=== PATIENT | female | born 1960 | race Caucasian/White ===

== ENCOUNTER → 2021-12-25 09:57 | Outpatient (CLI) | payer OTHER, SELFPAY ==
[2021-12-25 11:29] LABS: COVID19 -Nasal RAPID Negative (Negative)
== END ==
PROVIDERS: PCP Internal Medicine; Referring Provider Internal Medicine; Visit Provider Internal Medicine
DX: Z20.822 Contact with and (suspected) exposure to COVID-19 (principal)
CPT/HCPCS: 87635; C9803

== ENCOUNTER → 2021-12-25 09:58 | Outpatient (CLI) | payer OTHER, SELFPAY ==
--- NOTE | 2021-12-31 09:19 | PM.PFT.1 ---
Pulmonary Function Test Referral & Results Date Patient Seen: 12/25/21 Requesting provider: Tristian Frederick Results: The spirometry demonstrates an FVC of 4.04 L which is 97% of predicted. The FEV1 was measured at 3.19 L which is 99% of predicted. The FEV1/FVC ratio was 79 which is 101% of predicted. Following the administration of bronchodilator there was no appreciable change. Lung volumes show an SVC of 3.85 L which is 103% of predicted. The diffusing capacity was measured at 33.58 which is 99% of predicted. The maximum voluntary ventilation was normal Interpretation: This study demonstrates normal pulmonary function
== END ==
PROVIDERS: PCP Internal Medicine; Referring Provider Internal Medicine; Visit Provider Internal Medicine
DX: J45.20 Mild intermittent asthma, uncomplicated (principal); J30.89 Other allergic rhinitis; Z20.822 Contact with and (suspected) exposure to COVID-19
CPT/HCPCS: 87635; 94060; 94726; 94729; C9803

== ENCOUNTER → 2022-05-01 14:37 | Outpatient (CLI) | payer OTHER, SELFPAY ==
[2022-05-01 15:50] LABS: Hematocrit 39.2 % (36-46); Hemoglobin 13.5 g/dL (12.0-16.0); Mean Corpuscular HGB Conc 34.4 % (30-36); Mean Corpuscular Hemoglobin 32.6 PG (26-34); Platelet Count 246 X10^3/uL (150-400); Red Blood Cell Count 4.12 X10^6/uL (4.0-5.2); White Blood Cell Count 5.8 X10^3/uL (4.5-11.0)
[2022-05-01 16:16] LABS: Alanine Aminotransferase 50 IU/L (<35); Albumin 4.2 g/dL (3.5-5.0); Albumin Globulin Ratio 1.8 (1.0-2.8); Alkaline Phosphatase 57 U/L (38-126); Aspartate Aminotransferase 45 IU/L (14-36); BUN Creatinine Ratio 14.3 (6-22); Bilirubin Total 0.4 mg/dL (0.2-1.3); Blood Urea Nitrogen 13 mg/dL (7-17); Carbon Dioxide 27 mmol/L (22-32); Chloride 103 mmol/L (98-107); Estimated Glomerular Filt Rate > 60 mL/min (>60); Globulin 2.4 g/dL (1.7-4.1); Glucose 81 mg/dL (80-110); HEMOLYSIS < 15 (0-50); Potassium 3.7 mmol/L (3.4-5.1); Sodium 139 mmol/L (137-145); Total Protein 6.6 g/dL (6.3-8.2)
[2022-05-01 16:48] LABS: TSH w/ Reflex to FT4 1.39 uIU/mL (0.47-4.68)
== END ==
PROVIDERS: PCP Internal Medicine; Referring Provider Internal Medicine; Visit Provider Internal Medicine
DX: E78.2 Mixed hyperlipidemia; I25.10 Atherosclerotic heart disease of native coronary artery without angina pectoris; Z78.0 Asymptomatic menopausal state; Z13.820 Encounter for screening for osteoporosis; M81.0 Age-related osteoporosis without current pathological fracture
CPT/HCPCS: 36415; 77080; 80053; 84443; 85027

== ENCOUNTER → 2022-05-19 10:38 | Outpatient (CLI) | payer BC, SELFPAY ==
[2022-05-19 11:26] LABS: Alanine Aminotransferase 40 IU/L (<35); Alkaline Phosphatase 52 U/L (38-126); Aspartate Aminotransferase 34 IU/L (14-36); Bilirubin Total 0.7 mg/dL (0.2-1.3); Bilirubin Unconjugated 0.6 mg/dL (0.0-1.1); HEMOLYSIS < 15 (0-50); Total Protein 6.9 g/dL (6.3-8.2)
[2022-05-22 16:27] LABS: Albumin 4.5 g/dL (3.5-5.0); Albumin Globulin Ratio 1.9 (1.0-2.8); Globulin 2.4 g/dL (1.7-4.1)
== END ==
PROVIDERS: PCP Internal Medicine; Referring Provider Internal Medicine; Visit Provider Internal Medicine
DX: R79.89 Other specified abnormal findings of blood chemistry (principal)
CPT/HCPCS: 36415; 80076

== ENCOUNTER → 2022-12-30 14:03 | Outpatient (CLI) | payer BC, OTHER, SELFPAY ==
[2022-12-30 16:22] LABS: Vitamin D 25 Hydroxy (D3) 66.8 ng/mL (30.0-100.0)
== END ==
PROVIDERS: PCP Internal Medicine; Referring Provider Internal Medicine; Visit Provider Internal Medicine
DX: E21.3 Hyperparathyroidism, unspecified (principal); M81.0 Age-related osteoporosis without current pathological fracture
CPT/HCPCS: 36415; 82306; 82310; 83970

== ENCOUNTER 2024-08-18 11:13 | Outpatient (RCR) | payer BC, SELFPAY ==
--- NOTE | 2024-08-18 15:21 | ST.OPIE ---
Visit Care Team Role Provider Type Tristian Frederick MD Family Provider Physician Primary Care Provider Specialty: Internal Medicine Address: [address] [place] [address], [id number] Email: [email or web address] Tyrone Ramírez DO Attending Provider Non-Staff Referring Provider Specialty: Family Practice Address: [address] [place] [address], [id number] Email: Speech-Language Pathology Initial Evaluation SERVICE DELIVERY CONSULTANT Clinical Swallow Evaluation Start: 08/18/24 13:42 Freq: Status: Active Protocol: Document 08/18/24 13:43 SS (Rec: 08/18/24 14:29 SS Desktop) Clinical Swallow Evaluation Session Time Visit Start Time 11:30 Visit Stop Time 12:05 Total Visit Minutes 35 Visit Information Visit Number Initial evaluation Plan of Care Dates 08/18/24-11/17/24 Insurance Information BCBS Out of [facility] (max 20 visits) Referral Referring Provider Dr. Tyrone Ramírez Reason for Referral Swallowing concerns Setting Assessment Location Outpatient Care Visit Type Note Type Initial evaluation Next Note Type Next Note Type Treatment Note Patient Information Identification Type Name History Moni Ozuna is a 64-year -old female, referred for a clinical swallow evaluation by Dr. Ramírez due to concerns regarding globus sensation and hx of esophageal dysphagia. 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 Her GERD was previously treated with protonics, though she stopped taking them recently after not noticing an improvement in symptoms. She has implemented all strategies recommended to control the GERD symptoms. She reports her gastritis is now fully resolved and managed. PMHx includes allergic rhinitis, asthma, hyperlipidemia, coronary artery disease, and atrial fibrillation. Since experiencing the phrenic nerve damage, pt reports experiencing shortness of breath when speaking for prolonged periods of time, reduced volume, and vocal hoarseness. She has recently undergone a pulmonary function test, though SERVICE DELIVERY CONSULTANT does not have access to the records. Additionally, pt reports symptoms that may be related to GERD diagnosis, though possibly are indicative of a swallowing impairment. She reports globus sensation, particularly when lying down at night. She also reports occasional coughing with liquids, particularly when taking consecutive sips or not paying attention. She denied overt s/sx of aspiration with solids or medications and denied sticking sensation during or after swallowing. She denied additional esophageal symptoms. She denied neurological history or recent head/neck injuries or surgeries. She denied hx of pneumonia. Pt is also concerned that her symptoms may be related to the medications that she is currently taking and the effects of polypharmacy. Subjective Observations Pt arrived to the evaluation on time and was engaged and motivated throughout. Reported by Patient/Caregiver Other Symptoms Coughing,Difficulty swallowing liquids Current Diet Regular (IDDSI 7) Baseline Feeding Method Independent in self-feeding Results Pt reported occasional coughing with thin liquids. She expressed that pills stick in her throat if she does not use a puree carrier. She also reported globus sensation unrelated to PO intake. Current diet is regular textures, thin liquids, and pills in puree carrier. P The IDDSI Framework Protocol: IDDSI.1 Objective Assessment Mental Status Alert,Responsive,Cooperative Oral Integrity WFL Dentition Within normal limits Lip Function Within normal limits Observation of Lips at Rest Symmetrical Pucker Within normal limits Lip Retraction Within normal limits Alternating Pucker/Lip Retraction Within normal limits Tongue Function Within normal limits Observations of Tongue at Rest Within normal limits Tongue Protrusion Within normal limits Tongue Retraction Within normal limits Tongue Lateralization Within normal limits Jaw Function Within normal limits Observation of Jaw at Rest Within normal limits Jaw Opening Within normal limits Jaw Closing Within normal limits Jaw Lateralization Within normal limits Jaw Protrusion Within normal limits Jaw Retraction Within normal limits Hard/Soft Palate Function Within normal limits Observations of Hard/Soft Palate Within normal limits Nasality Within normal limits Respiratory Sufficiency Within normal limits,Mild impairment Comment Phrenic nerve damage may be impacting diaphragmatic function, though this did not appear to impact swallowing during evaluation. Pt does report reduced expiratory efficiency/strength. Food and Liquid Trials Position During Assessment Upright (90 degrees) Liquids Trialed Thin (IDDSI 0) Solid Trials Regular (IDDSI 7) Administration Type Cup single sip,Cup consecutive sips,Straw,Self-feeding Oral Impairment Within normal limits Oral Phase Comments WNL function. Oral acceptance of bolus was WNL. Pt demonstrated adequate labial seal. Anterior-posterior transit of the bolus appeared timely. Mastication appeared timely. No oral residue was observed. Pharyngeal Impairment Mildly impaired Pharyngeal Phase Comments Pt demonstrated immediate cough during sequential sips of thin liquid, though this was inconsistent. She expressed she felt she was rushing. No overt s/sx of aspiration noted with regular texture. GERD may also be contributing to presence of cough and globus sensation, though penetration/aspiration cannot be ruled out without instrumental assessment. Fatigue/Endurance Endurance WNL The IDDSI Framework Protocol: IDDSI.1 Findings Swallowing Function Pharyngeal phase dysphagia Severity of Swallow Impairment Mildly impaired Prognosis Good Based on Cognitive status,Age,Duration of symptoms/severity,Other ( comment) Comment Signs and symptoms of pharyngeal dysphagia, likely related to the pt's dx of GERD and gastritis, though aspiration impacting swallowing safety and pharyngeal residue impacting swallowing efficiency cannot be ruled out without instrumental assessment. Based on pt?s good oral health status and overall immune function, pt currently remains at a low risk of pulmonary compromise and aspiration risk appears low. Additionally, pt reports symptoms consistent with potential pharyngeal weakness that should be further assessed. Modified barium swallow study (MBSS) is indicated to thoroughly further assess pt?s swallow pathophysiology, determine aspiration risk, make appropriate and updated diet and treatment recommendations, as well as to identify need for additional referrals. Additionally, pt reports hoarseness, reduced breath support, and reduced vocal volume, which are likely related to reduced innervation to the diaphragm due to phrenic nerve damage. Recommend ENT and pulmonology referral to further assess these symptoms. The plan is for the pt to complete a modified barium swallow study to further assess swallowing pathophysiology. Also recommend pt complete ENT/ pulmonology workup to further assess respiratory function and potential dysphonia in order to determine treatment plan. Further goals will be established based on these results. Recommendations Instrumental Assessment Yes Swallowing Treatment Yes Frequency Pending MBSS and further workup Duration Pending MBSS and further workup Recommended Solids Regular (IDDSI 7) Recommended Liquids Thin (IDDSI 0) Other Recommendations No changes to current diet. Continue to implement recommended strategies to control GERD symptoms and slow rate when drinking liquids. Medication Recommendations As Tolerated,Whole,Whole in Carrier Referrals Recommended Referrals Otolaryngology/ENT,Primary Care Provider,Pulmonology Education Patient/Caregiver Education Described results of evaluation,Patient expressed understanding of evaluation, Patient expressed agreement with goals & treatment plans Goals Short-term Goals 1. Patient will complete MBSS to further assess swallowing pathophysiology and next steps in POC. 2. Patient will see ENT and surgical technology instructor to further assess laryngeal and respiratory function prior to establishing voice goals in the setting of phrenic nerve damage. Long-term Goals 1. Patient will safely tolerate least restrictive diet consistency to allow for safe consumption of daily meals without overt s/sx of aspiration.
--- NOTE | 2024-08-18 15:23 | ST.OPPOC ---
Physical, Occupational & Speech Therapy At [facility] Visit Care Team Role Provider Type Tristian Frederick MD Family Provider Physician Primary Care Provider Address: [address] [place] [address], [id number] Tyrone Ramírez DO Attending Provider Non-Staff Referring Provider Address: [address] [place] [address], [place], [address] Speech Pathology Plan of Care Plan of Care Dates 08/18/24-11/17/[address] Tyrone Ramírez Patient History Moni Ozuna is a 64-year-old female, referred for a clinical swallow evaluation by Dr Anabell Ramírez due to concerns regarding globus sensation and hx of esophageal dysphagia. 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 Her GERD was previously treated with protonics, though she stopped taking them recently after not noticing an improvement in symptoms. She has implemented all strategies recommended to control the GERD symptoms. She reports her gastritis is now fully resolved and managed. PMHx includes allergic rhinitis, asthma, hyperlipidemia, coronary artery disease, and atrial fibrillation. Since experiencing the phrenic nerve damage, pt reports experiencing shortness of breath when speaking for prolonged periods of time, reduced volume, and vocal hoarseness. She has recently undergone a pulmonary function test, though CHILDHOOD DEVELOPMENT TEACHER does not have access to the records. Additionally, pt reports symptoms that may be related to GERD diagnosis, though possibly are indicative of a swallowing impairment. She reports globus sensation, particularly when lying down at night . She also reports occasional coughing with liquids, particularly when taking consecutive sips or not paying attention. She denied overt s /sx of aspiration with solids or medications and denied sticking sensation during or after swallowing. She denied additional esophageal symptoms. She denied neurological history or recent head/neck injuries or surgeries. She denied hx of pneumonia. Pt is also concerned that her symptoms may be related to the medications that she is currently taking and the effects of polypharmacy. Short-term Goals 1. Patient will complete MBSS to further assess swallowing pathophysiology and next steps in POC . 2. Patient will see ENT and cotton program technician to further assess laryngeal and respiratory function prior to establishing voice goals in the setting of phrenic nerve damage. Long-term Goals 1. Patient will safely tolerate least restrictive diet consistency to allow for safe consumption of daily meals without overt s/sx of aspiration. Comment: Electronically Signed by: CHRISTOS Aguilar 08/18/24 1449 If you are in agreement with this Plan of Care, please return a signed and dated copy. I have reviewed this Plan of Care and certify that the skilled therapy services above are required to meet the patient?s needs. Physician Signature Date Printed Name and Credentials Clinical Instructor Signature Printed Name and Credentials
--- NOTE | 2024-08-18 15:29 | ST-OP ANOTE ---
Physical, Occupational & Speech Therapy At [facility] Speech Therapy Note Evaluation report and POC sent to PCP, Dr. Tristian Frederick, and to referring provider, Dr. Tyrone Ramírez. Recommendations included in sent fax. [facility] to follow up as needed.
--- NOTE | 2024-10-23 13:52 | ST.OPDS ---
Visit Care Team Role Provider Type Tristian Frederick MD Family Provider Physician Primary Care Provider Address: [address] [place] [address], [id number] Tyrone Ramírez DO Attending Provider Non-Staff Referring Provider Address: [address] [place] [address], [place], [address] Account discharged. Pt followed up with PCP and ENT re: concerns and returns with a dysphonia referral. ROUGH RICE TENDER to complete voice evaluation under new account.
== END 2024-10-26 11:05 | disposition home or self-care (01) ==
LOC: SP 11:13
PROVIDERS: Family Provider Internal Medicine; PCP Internal Medicine; Referring Provider Family Medicine; Visit Provider Family Medicine
DX: J38.01 Paralysis of vocal cords and larynx, unilateral (principal); R49.0 Dysphonia; R09.A2 Foreign body sensation, throat; R13.19 Other dysphagia
CPT/HCPCS: 92610

== ENCOUNTER → 2024-12-07 08:39 | Outpatient (CLI) | payer BC, SELFPAY ==
--- NOTE | 2024-12-07 13:53 | ST.SWALLOW ---
Visit Care Team Role Provider Type Tristian Frederick MD Family Provider Physician Specialty: Internal Medicine Address: [address] [place] [address], [address] Email: [email or web address] Tyrone Ramírez DO Attending Provider Non-Staff Primary Care Provider Referring Provider Specialty: Family Practice Address: [address], [place], [address] Email: Modified Barium Swallow Study RETURN AGENT Modified Barium Swallow Study Start: 12/07/24 12:58 Freq: Status: Active Protocol: Document 12/07/24 13:01 LNK (Rec: 12/07/24 13:53 LNK Desktop) Modified Barium Swallow Study Total Time Visit Start Time 09:00 Visit Stop Time 10:00 Total Visit Minutes 60 Referral Referring Physician Tyrone Ramírez DO Setting Setting Outpatient Care Patient Information Identification Type Name,Date of Patient History ?Pt was seen for a Modified Barium Swallow Study with concerns regarding persistent difficulty swallowing, and incomplete swallows She pointed the her laryngeal and suprasternal areas describing a globus sensation. 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 She stopped taking protonics recently as she did not notice improvement with the medication. Since experiencing the phrenic nerve damage, pt reported experiencing shortness of breath when speaking for prolonged periods time, reduced volume, and vocal hoarseness. She reports globus sensation when lying down at night. She also noted occasional coughing with liquids, particularly when taking consecutive sips or not paying attention. She denied overt s/sx of aspiration with solids or medications and denied sticking sensation during or after swallowing. She denied additional esophageal symptoms. She denied neurological history or recent head/neck injuries or surgeries. She denied hx of pneumonia. Additionally, pt has been seen by Dr. Kamari Morin ( ENT) for videostroboscopy. The results indicated a small glottic gap, mild reduced left mucosal wave, and mild left vocal paresis in abduction consistent with recurrent laryngeal nerve injury. Subjective Pt was seated in the fluoroscopy chair with directions Observations and procedures described for her. She indicated she understood and agreed to proceed. Patient Positioning Position View Lat-A/P Imaging Lateral View Textures Administered Trials Presented Thin Liquid via Spoon (IDDSI 0),Thin Liquid via Cup ( IDDSI 0),Extremely Thick Liquid via Spoon (IDDSI 4), Easy to Chew (IDDSI 7) Barium Tablet Yes The IDDSI Framework Protocol: IDDSI.1 Oral Impairment Source: The Modified Barium Swallow Impairment Profile (MBSImP??) Lip Closure No labial escape Tongue Control Cohesive bolus between tongue to palatal seal During Bolus Hold Bolus Preparation/ Timely & efficient chewing & mashing Mastication Bolus Transport/ Brisk tongue motion Lingual Motion Oral Residue Complete oral clearance,Trace residue lining oral structures Location Tongue Initiation of Bolus head in valleculae Pharyngeal Swallow Additional Oral Oral Phase of swallow WNL Impairment Observations Pharyngeal Impairment Source: The Modified Barium Swallow Impairment Profile (MBSImP??) Soft Palate No bolus between soft palate & pharyngeal wall Elevation Laryngeal Elevation Comp.sup.move.thyroid cart.w/comp.approx.arytenoids to epiglot petiole Anterior Hyoid Complete anterior movement Excursion Epiglottic Movement Complete inversion Laryngeal Vestibular Complete; no air/contrast in laryngeal vestibule Closure Pharyngeal Stripping Present - complete Wave Pharyngoesophageal Complete distention & complete duration; no obstruction Segment Opening of flow Tongue Base No contrast between tongue base & posterior pharyngeal Retraction wall Pharyngeal Residue Trace residue within/on pharyngeal structures Location Diffuse (>3 areas) Additional Pharyngeal phase of swallow WNL Pharyngeal Impairment Observations A/P View Textures Administered Trials Presented Thin Liquid via Spoon (IDDSI 0) The IDDSI Framework Protocol: IDDSI.1 A/P View Observations Pharyngeal Complete Contraction Esophageal Clearance Esophageal retention Upright Position Vocal Fold Function Good Esophageal Function WFL Additional A-P Esophageal retention observed in the upper esophagus. Observations Incomplete clearance of residual with water wash. Implementation of the LINDSAY strategy was successful in clearing residual to the stomach. Pt reported the sensation of globus was resolved. Pt provided with literature on globus sensation and the LINDSAY therapeutic strategy. Patient was appreciative. Clinical Impressions Dysphagia Type Esophageal Findings *Mild esophageal dysphagia *Mild esophageal dysmotility was observed. *Implementation of a therapeutic swallow strategy was effective in clearing esophageal residual Pt expressed appreciation. Literature provided. Patient Appropriate Yes: Recommend continuation of ST for vocal strength, for Therapy glottal adduction, Recommendations Treatment Plan Therapy Outpatient Speech Therapy Recommendations Additional Continue outpatient therapy for voice Recommended Referrals
== END ==
LOC: RAD 08:40
PROVIDERS: Family Provider Internal Medicine; PCP Family Medicine; Referring Provider Family Medicine; Visit Provider Family Medicine
DX: R13.10 Dysphagia, unspecified (principal)
CPT/HCPCS: 74230; 92611

== ENCOUNTER 2024-12-13 12:15 | Outpatient (RCR) | payer BC, SELFPAY ==
--- NOTE | 2024-10-25 16:11 | ST.OPIE ---
Visit Care Team Role Provider Type CHRISTOS Ruiz Other Providers Speech Therapist Specialty: Speech Therapy Address: Phone: Fax: Email: Tristian Frederick MD Family Provider Physician Specialty: Internal Medicine Address: [address] [place] [address], [id number] Email: [email or web address] Tyrone Ramírez DO Attending Provider Non-Staff Primary Care Provider Referring Provider Specialty: Family Practice Address: [address] [place] [address], [id number] Email: Speech-Language Pathology Initial Evaluation [facility] Clinical Swallow Evaluation Start: 10/25/24 13:09 Freq: Status: Active Protocol: Document 10/25/24 13:11 SS (Rec: 10/25/24 13:44 SS Desktop) Clinical Swallow Evaluation Session Time Visit Start Time 12:00 Visit Stop Time 12:20 Total Visit Minutes 20 Visit Information Visit Number Initial evaluation Plan of Care Dates 10/25/24-01/25/25 Insurance [facility] Out [facility] (max 20 visits) Information Referral Referring Provider Dr. Tyrone Ramírez Reason for Referral Swallowing concerns and dysphonia Setting Assessment Location Outpatient Care Visit Type Note Type Initial evaluation Next Note Type Next Note Type Treatment Note Patient Information Identification Type Name History Initial evaluation was completed on 08/18/24. Pt was discharged due to delayed ENT scheduling and reevaluated today for dysphagia and dysphonia. Per report, ?Moni Ozuna is a 64-year -old female, referred for a clinical swallow evaluation by Dr. Ramírez due to concerns regarding globus sensation and hx of esophageal dysphagia. 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 Her GERD was previously treated with protonics, though she stopped taking them recently after not noticing an improvement in symptoms. She has implemented all strategies recommended to control the GERD symptoms. She reports her gastritis is now fully resolved and managed. PMHx includes allergic rhinitis, asthma, esophagitis, hyperlipidemia, coronary artery disease, and atrial fibrillation. Since experiencing the phrenic nerve damage, pt reports experiencing shortness of breath when speaking for prolonged periods of time, reduced volume, and vocal hoarseness. She has recently undergone a pulmonary function test, though [facility] does not have access to the records. Additionally, pt reports symptoms that may be related to GERD diagnosis, though possibly are indicative of a swallowing impairment. She reports globus sensation, particularly when lying down at night. She also reports occasional coughing with liquids, particularly when taking consecutive sips or not paying attention. She denied overt s/sx of aspiration with solids or medications and denied sticking sensation during or after swallowing. She denied additional esophageal symptoms. She denied neurological history or recent head/neck injuries or surgeries. She denied hx of pneumonia. Pt is also concerned that her symptoms may be related to the medications that she is currently taking and the effects of polypharmacy.? Since initial evaluation, pt has also noted sticking sensation with solids, which resolved with use of liquid wash. Additionally, pt has been seen by Dr. Kamari Morin ( ENT)and endoscopic exam and videostroboscopy were completed which showed small glottic gap, mild reduced left mucosal wave, and mild left vocal paresis in abduction consistent with recurrent laryngeal nerve injury. Subjective Pt arrived to the evaluation on time and was engaged Observations and motivated throughout. Reported by Patient/Caregiver Other Symptoms Coughing,Difficulty swallowing liquids,Difficulty swallowing solids,Food gets stuck Current Diet Regular (IDDSI 7) Baseline Feeding Independent in self-feeding Method Results Pt reported occasional coughing with thin liquids a few times a week. She expressed she has to be mindful of her rate and sip size. She expressed that pills stick in her throat if she does not use a puree carrier. She also reported accumulation of saliva in her throat when she lays down in bed and is difficult to clear. Pt has noticed increased sticking sensation in her throat after swallowing touch/chewy foods, which clears with liquid wash. Current diet is regular textures, thin liquids, and pills in puree carrier. The IDDSI Framework Protocol: IDDSI.1 Objective Assessment Mental Status Alert,Responsive,Cooperative Oral Integrity WFL Dentition Within normal limits Lip Function Within normal limits Tongue Function Within normal limits Jaw Function Within normal limits Hard/Soft Palate Within normal limits Function Nasality Within normal limits Respiratory Within normal limits Sufficiency Comment Phrenic nerve damage may be impacting diaphragmatic function, though this did not appear to impact swallowing during evaluation. Vocal fold function and paresis may be impacting overall swallowing function and impacting airway protection. Pt does report reduced expiratory efficiency/strength. Food and Liquid Trials Position During Upright (90 degrees) Assessment Liquids Trialed Thin (IDDSI 0) Solid Trials Regular (IDDSI 7) Administration Type Cup single sip,Cup consecutive sips,Self-feeding Oral Impairment Within normal limits Oral Phase Comments WNL function. Oral acceptance of bolus was WNL. Pt demonstrated adequate labial seal. Anterior-posterior transit of the bolus appeared timely. Mastication appeared timely. No oral residue was observed. Pharyngeal Mildly impaired Impairment Pharyngeal Phase Pt demonstrated immediate cough during sequential sips Comments of thin liquid, though this was inconsistent. No difficulty demonstrated with single sips of thin liquid . No overt s/sx of aspiration noted with regular texture. Pt also reported regular solids sticking in her throat, which she independently clear with liquid wash. GERD may be contributing to presence of cough and globus sensation, though penetration/aspiration cannot be ruled out without instrumental assessment. Fatigue/Endurance Endurance WNL The IDDSI Framework Protocol: IDDSI.1 Findings Swallowing Function Pharyngeal phase dysphagia Severity of Swallow Mildly impaired Impairment Prognosis Good Based on Cognitive status,Family support,Age Comment Signs and symptoms of pharyngeal dysphagia, likely related to the pt's dx of GERD and gastritis, though aspiration impacting swallowing safety and pharyngeal residue impacting swallowing efficiency cannot be ruled out without instrumental assessment. Based on pt?s good oral health status and overall immune function, pt currently remains at a low risk of pulmonary compromise and aspiration risk appears low. Additionally, pt reports symptoms consistent with potential pharyngeal weakness that should be further assessed. Modified barium swallow study (MBSS) is indicated to thoroughly further assess pt?s swallow pathophysiology, determine aspiration risk, make appropriate and updated diet and treatment recommendations, as well as to identify need for additional referrals. Further goals will be established based on these results. Pt agreeable to completing MBSS. [facility] to send message to PCP re: order for MBSS. Impact on Safety and Risk for aspiration Functioning Recommendations Instrumental Yes Assessment Swallowing Treatment Yes Frequency 1x/week (pending MBSS results) Duration 3 months (pending MBSS results) Recommended Solids Regular (IDDSI 7) Recommended Liquids Thin (IDDSI 0) Other No changes to current diet. Continue to implement Recommendations recommended strategies to control GERD symptoms and slow rate when drinking liquids. Safety Precautions/ Reduce distractions,Remain upright (90 degrees) during Swallowing all oral intake,Upright position at least 30 minutes Recommendations after meals,Small bites and sips when eating,Slow rate; swallow between bites,Multiple swallows,Alternate liquids and solids Medication As Tolerated,Whole,Whole in Carrier Recommendations Referrals Recommended Primary Care Provider,Pulmonology Referrals Education Patient/Caregiver Described results of evaluation,Patient expressed Education understanding of evaluation,Patient expressed agreement with goals & treatment plans Goals Short-term Goals 1. Patient will complete MBSS to further assess swallowing pathophysiology and next steps in POC. Long-term Goals 1. Patient will safely tolerate least restrictive diet consistency to allow for safe consumption of daily meals without overt s/sx of aspiration. [facility] Voice Resonance Evaluation Start: 10/25/24 13:09 Freq: Status: Active Protocol: Document 10/25/24 13:11 SS (Rec: 10/25/24 13:44 SS Desktop) Voice and Resonance Assessment Session Time Visit Start Time 11:30 Visit Stop Time 12:00 Total Visit Minutes 30 Visit Information Visit Number Initial evaluation Plan of Care Dates 10/25/24-01/25/25 Insurance [facility] Out of [facility] (max 20 visits) Information Next Note Type Next Note Type Treatment Note Referral Referring Physician Dr. Tyrone Ramírez Reason for Referral Swallowing concerns and dysphonia Setting Setting Outpatient Care Patient History Patient History Initial evaluation was completed on 08/18/24. Pt was discharged due to delayed ENT scheduling and reevaluated today for dysphagia and dysphonia. Per report, ?Moni Ozuna is a 64-year -old female, referred for a clinical swallow evaluation by Dr. Ramírez due to concerns regarding globus sensation and hx of esophageal dysphagia. 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 Her GERD was previously treated with protonics, though she stopped taking them recently after not noticing an improvement in symptoms. She has implemented all strategies recommended to control the GERD symptoms. She reports her gastritis is now fully resolved and managed. PMHx includes allergic rhinitis, asthma, esophagitis, hyperlipidemia, coronary artery disease, and atrial fibrillation. Since experiencing the phrenic nerve damage, pt reports experiencing shortness of breath when speaking for prolonged periods of time, reduced volume, and vocal hoarseness. She has recently undergone a pulmonary function test, though [facility] does not have access to the records. Additionally, pt reports symptoms that may be related to GERD diagnosis, though possibly are indicative of a swallowing impairment. She reports globus sensation, particularly when lying down at night. She also reports occasional coughing with liquids, particularly when taking consecutive sips or not paying attention. She denied overt s/sx of aspiration with solids or medications and denied sticking sensation during or after swallowing. She denied additional esophageal symptoms. She denied neurological history or recent head/neck injuries or surgeries. She denied hx of pneumonia. Pt is also concerned that her symptoms may be related to the medications that she is currently taking and the effects of polypharmacy.? Since initial evaluation, pt has also noted sticking sensation with solids, which resolved with use of liquid wash. Additionally, pt has been seen by Dr. 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 Continued voice treatment was recommended. Oral Motor Assessment Source: [employer] (CHELSI). Oral-Motor Eval Yes Completed Oral-Motor CRANIAL NERVE EXAM Assessment CN V (Trigeminal): Intact b/l CN VII (Facial): Intact b/l CN IX/X (Glossopharyngeal/Vagus): Unable to exclude CN X branch involvement 2/2 dysphonia CN XII (Hypoglossal): Intact b/l Muscle Strength: Demonstrated adequate labial and lingual strength during resistance tasks Speed of Movement: At the conversation level, speed of movement is judged to be adequate. Accuracy of Movement: In regards to speech production, accuracy is WNL. Range of Motion: ROM within normal limits. Muscle Tone: Muscle tone of all speech related musculature appeared adequate - Laryngeal Performance S/Z Ratio S/Z Ratio 20.66/20.19 = 1 WFL = ~20-25 seconds for both phonemes, ratio of 1 Functional for No Speech Reduced Laryngeal No Function Relative to Respiration Voice Handicap Index Function Subtotal 25 Physical Subtotal 21 Emotional Subtotal 13 Total Score 59 Severity Moderate (31-60) CAPE-V Overall Severity Mild (characterized by roughness, strain, and reduced volume) Roughness Mild (in conversation) Breathiness Mild (in conversation) Strain Mild (in conversation) Pitch Within normal limits Loudness Mildly reduced (in conversation) Normal Resonance? Yes Other Features Chronic throat clearing Observed Maximum Phonation Time MPT Norms: Women (15-25) Men (25-35) Loudness (50-60 dB); Speaking Rate: Oral Reading of Sentences (190 Words Per Minute); Oral Reading of Paragraphs (160-170 WPM); Speaking Rate in Conversation (150-250 WPM) Maximum Phonation 18.66 seconds = Average Time Maximum Phonation Adequate for Speech,Reduced,Unstable Loudness Time Maximum Phonation While MPT was average for pt's age and gender, she Time Comments demonstrated reduced volume and increased hoarseness during this task. Voice Pitch Range Norms: Women (100-300 Hz) Men (70-250 Hz) Fundamental Frequency Norms: Women (Mean: 225 Hz; Range: 155-334 Hz) Men ( Mean: 128 Hz; Range: 85-196 Hz) Voice Pitch Normal Voice Loudness Mildly Soft/Quiet Voice Phonatory- Harsh,Hoarse,Weak based Quality Resonance Nasal Resonance Normal Oral Resonance Normal Findings Findings Mild Impairment Observations Based on [facility] assessment and instrumental results from ENT assessment, pt presents with mild dysphonia (R49.0) in the setting of unilateral vocal fold paresis. Pt?s speech is characterized by mild hoarseness, mild strain , mild breathiness, and mildly reduced volume at the conversation level. Her vocal quality decreases as she speaks for longer periods of time. Pt reports she would like to project her voice and sounds less hoarse. She reports her speech affects her ability to speak on the phone and her social participation. Prognosis for stated goals is good pending cooperation and motivation . Improvement will be contingent upon pt compliance to the following recommendations. Recommendations are for skilled speech rehabilitation in the outpatient speech therapy clinic to improve functional communication during activities of daily living, for the most independence, and the best quality of life. Focus should be on improving volume and quality of voice in conversation. Additionally, given chronic throat clearing, treatment to include suppression techniques to reduce frequency/severity of chronic throat clearing . Prognosis Rehabilitation Good Potential - Recommendations Treatment Yes Recommended Treatment Frequency/ 1x/week for 3 months Duration Therapy Recommendations are for skilled speech therapy services Recommendations addressing dysphonia and chronic throat clearing. Pt will be trained in the following: resonant voice exercises, SOVTE, stretch and flow, and diaphragmatic breathing. She will receive education re: chronic throat clearing suppression techniques, strategies to relieve uncomfortable throat sensation, and increase awareness of throat irritation. Short Term Goals 1. Pt will benefit from education in mechanics of voicing and tone focus in order to assist in producing resonant voice. 2. Pt will complete trained voice exercises (including, but not limited to resonant voice exercises, SOVTE, stretch and flow, and diaphragmatic breathing) in 100% of opportunities independently in order to increase efficiency of vocal fold vibration, improve breath support, and improve overall vocal quality. 3. Pt will participate in daily HEP targeting vocal hoarseness to improve voice quality per patient report. 4. Pt will participate in education of chronic cough strategies and independently recall at least two strategies. Special Service Officer Goals 1. Pt will improve overall self-perception of voice from a baseline of 59/120 on the Vocal Handicap Index ( VHI) following participation in ST skilled services. 2. Pt will report increased ability to return to baseline voice activities (e.g., ability to speak for prolonged periods of time, participate in conversation in loud environments) without experiencing hoarseness or reduced volume following participation in ST skilled services. 3. Pt will report an improvement in frequency and severity of occurrence of chronic cough. Patient/Caregiver Education Patient/Family Described results of evaluation,Patient Understanding Education
--- NOTE | 2024-10-25 16:11 | ST.OPPOC ---
Physical, Occupational & Speech Therapy At [facility] Unit Visit Care Team Role Provider Type CHRISTOS Ruiz Other Providers Speech Therapist Address: Phone: Fax: Tristian Frederick MD Family Provider Physician Address: [address] [place] [address], [id number] Tyrone Ramírez DO Attending Provider Non-Staff Primary Care Provider Referring Provider Address: [address] [place] [address], [id number] Speech Pathology Plan of Care Plan of Care Dates 10/25/24-01/25/[address] Tyrone Ramírez Patient History Initial evaluation was completed on 08/18/24. Pt was discharged due to delayed ENT scheduling and reevaluated today for dysphagia and dysphonia. Per report, ?Moni Ozuna is a 64-year -old female, referred for a clinical swallow evaluation by Dr. Ramírez due to concerns regarding globus sensation and hx of esophageal dysphagia. 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 Her GERD was previously treated with protonics, though she stopped taking them recently after not noticing an improvement in symptoms. She has implemented all strategies recommended to control the GERD symptoms. She reports her gastritis is now fully resolved and managed. PMHx includes allergic rhinitis, asthma , esophagitis, hyperlipidemia, coronary artery disease, and atrial fibrillation. Since experiencing the phrenic nerve damage, pt reports experiencing shortness of breath when speaking for prolonged periods of time, reduced volume, and vocal hoarseness. She has recently undergone a pulmonary function test, though [facility] does not have access to the records. Additionally, pt reports symptoms that may be related to GERD diagnosis, though possibly are indicative of a swallowing impairment. She reports globus sensation, particularly when lying down at night. She also reports occasional coughing with liquids, particularly when taking consecutive sips or not paying attention. She denied overt s/sx of aspiration with solids or medications and denied sticking sensation during or after swallowing. She denied additional esophageal symptoms. She denied neurological history or recent head/neck injuries or surgeries. She denied hx of pneumonia. Pt is also concerned that her symptoms may be related to the medications that she is currently taking and the effects of polypharmacy.? Since initial evaluation, pt has also noted sticking sensation with solids, which resolved with use of liquid wash. Additionally, pt has been seen by Dr. Kamari Morin (ENT) and endoscopic exam and videostroboscopy were completed which showed small glottic gap, mild reduced left mucosal wave, and mild left vocal paresis in abduction consistent with recurrent laryngeal nerve injury related to surgery. Continued voice treatment was recommended. Voice/Resonance Findings Mild Impairment Voice/Resonance Prognosis Good Voice/Resonance Yes Recommendations Voice/Resonance Treatment 1x/week for 3 months Frequency Therapy Recommendations Recommendations are for skilled speech therapy services addressing dysphonia and chronic throat clearing. Pt will be trained in the following: resonant voice exercises, SOVTE, stretch and flow, and diaphragmatic breathing. She will receive education re: chronic throat clearing suppression techniques, strategies to relieve uncomfortable throat sensation, and increase awareness of throat irritation. Short Term Goals 1. Pt will benefit from education in mechanics of voicing and tone focus in order to assist in producing resonant voice. 2. Pt will complete trained voice exercises ( including, but not limited to resonant voice exercises, SOVTE, stretch and flow, and diaphragmatic breathing) in 100% of opportunities independently in order to increase efficiency of vocal fold vibration, improve breath support, and improve overall vocal quality. 3. Pt will participate in daily HEP targeting vocal hoarseness to improve voice quality per patient report. 4. Pt will participate in education of chronic cough strategies and independently recall at least two strategies. Short-term Goals 1. Patient will complete MBSS to further assess swallowing pathophysiology and next steps in POC . Acid Plant Helper Goals 1. Pt will improve overall self-perception of voice from a baseline of 59/120 on the Vocal Handicap Index (VHI) following participation in skilled services. 2. Pt will report increased ability to return to baseline voice activities (e.g., ability to speak for prolonged periods of time, participate in conversation in loud environments) without experiencing hoarseness or reduced volume following participation in skilled services. 3. Pt will report an improvement in frequency and severity of occurrence of chronic cough. Long-term Goals 1. Patient will safely tolerate least restrictive diet consistency to allow for safe consumption of daily meals without overt s/sx of aspiration. Comment: Electronically Signed by: CHRISTOS Aguilar 10/25/24 [id number] If you are in agreement with this Plan of Care, please return a signed and dated copy. I have reviewed this Plan of Care and certify that the skilled therapy services above are required to meet the patient?s needs. Physician Signature Date Printed Name and Credentials Clinical Instructor Signature Printed Name and Credentials
--- NOTE | 2024-10-25 16:15 | ST-OP ANOTE ---
Physical, Occupational & Speech Therapy At [facility] Speech Therapy Note POC sent to PCP, Dr. Tyrone Ramírez, requesting signature if in agreement. Additionally, requested order for MBSS. PLUGGER WORKER to follow up as needed.
--- NOTE | 2024-11-02 16:00 | ST.OPTN ---
Visit Care Team Role Provider Type CHRISTOS Ruiz Other Providers Speech Therapist Address: Phone: Fax: Tristian Frederick MD Family Provider Physician Address: [address] [place] [address], [place], [address] Tyrone Ramírez DO Attending Provider Non-Staff Primary Care Provider Referring Provider Address: [address] [place] [address], [place], [address] FUR FINISHER Treatment Note FUR FINISHER Treatment Note Start: 10/25/24 13:09 Freq: Status: Active Protocol: Document 11/02/24 15:46 SS (Rec: 11/02/24 15:59 SS Desktop) Speech Pathology Treatment Note Session Time Visit Start Time 11:30 Visit Stop Time 12:08 Total Visit Minutes 38 Visit Information Visit Number 06/22 Plan of Care Dates 10/25/24-01/25/25 Insurance [facility] Out of [facility] (max 20 visits) Information Setting Treatment Setting Outpatient Care Visit Type Note Type Treatment Note Next Note Type Next Note Type Treatment Note General Information Patient History Initial evaluation was completed on 08/18/24. Pt was discharged due to delayed ENT scheduling and reevaluated today for dysphagia and dysphonia. Per report, ?Moni Ozuna is a 64-year -old female, referred for a clinical swallow evaluation by Dr. Ramírez due to concerns regarding globus sensation and hx of esophageal dysphagia. 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 Her GERD was previously treated with protonics, though she stopped taking them recently after not noticing an improvement in symptoms. She has implemented all strategies recommended to control the GERD symptoms. She reports her gastritis is now fully resolved and managed. PMHx includes allergic rhinitis, asthma, esophagitis, hyperlipidemia, coronary artery disease, and atrial fibrillation. Since experiencing the phrenic nerve damage, pt reports experiencing shortness of breath when speaking for prolonged periods of time, reduced volume, and vocal hoarseness. She has recently undergone a pulmonary function test, though FUR FINISHER does not have access to the records. Additionally, pt reports symptoms that may be related to GERD diagnosis, though possibly are indicative of a swallowing impairment. She reports globus sensation, particularly when lying down at night. She also reports occasional coughing with liquids, particularly when taking consecutive sips or not paying attention. She denied overt s/sx of aspiration with solids or medications and denied sticking sensation during or after swallowing. She denied additional esophageal symptoms. She denied neurological history or recent head/neck injuries or surgeries. She denied hx of pneumonia. Pt is also concerned that her symptoms may be related to the medications that she is currently taking and the effects of polypharmacy.? Since initial evaluation, pt has also noted sticking sensation with solids, which resolved with use of liquid wash. Additionally, pt has been seen by Dr. 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 Continued voice treatment was recommended. Subjective Identification Type Name Observations/Patient Pt arrived to session on time. She was engaged and Presentation motivated throughout. Objective Short Term Goals Dysphonia 1. Pt will benefit from education in mechanics of voicing and tone focus in order to assist in producing resonant voice. 2. Pt will complete trained voice exercises (including, but not limited to resonant voice exercises, SOVTE, stretch and flow, and diaphragmatic breathing) in 100% of opportunities independently in order to increase efficiency of vocal fold vibration, improve breath support, and improve overall vocal quality. 3. Pt will participate in daily HEP targeting vocal hoarseness to improve voice quality per patient report. 4. Pt will participate in education of chronic cough strategies and independently recall at least two strategies. Dysphagia 1. Patient will complete MBSS to further assess swallowing pathophysiology and next steps in POC. Half-Way Goals 1. Pt will improve overall self-perception of voice from a baseline of 59/120 on the Vocal Handicap Index ( VHI) following participation in skilled services. 2. Pt will report increased ability to return to baseline voice activities (e.g., ability to speak for prolonged periods of time, participate in conversation in loud environments) without experiencing hoarseness or reduced volume following participation in skilled services. 3. Pt will report an improvement in frequency and severity of occurrence of chronic cough. Treatment Activities Education and training in voice exercises, including resonant voice exercises, Semi-Occluded Vocal Tract Exercise (SOVTE) straw phonation, and diaphragmatic breathing exercise to increase efficiency of vocal fold vibration, improve breath support, and improve overall vocal quality. Reviewed HEP. FUR FINISHER called PCP office and requested order for modified barium swallow study as pt has not heard back re: scheduling yet. Assessment Patient Response to Good Treatment Rehab Potential Good Impairments Voice Identified Progress Towards Good Progress Goals Assessment of Improving Overall Progress Assessment of Provided education re: diaphragmatic breathing exercise Improvement recommendation with cueing for pt to place her hand on her stomach for tactile feedback. Pt benefited from multiple explanations of exercise and modeling, but was able to complete it accurately and expressed understanding of the goal and form. Recommended pt complete 10-20 reps of exercise daily to increase respiratory control and coordination with voice. Guided pt in resonant voice therapy exercises with the goal of increasing efficiency of vocal fold vibration by using a hierarchical approach and starting with /m/ in isolation. Pt instructed to place her hands on her face for tactile feedback during the humming exercise and to focus on the vibration in the front of his face with minimal effort in the throat. Pt with accurate production on first trial. Increased to syllable/word level with cueing for stretching ?m sound and use of intent. Pt production was clear with first trial following cue to stretch /m/ and FUR FINISHER modeling. Semi-Occluded Vocal Tract Exercise (SOVTE) straw phonation implemented with the goal of improving balance among the subsystems by increasing vocal tract inertance, resulting in a more efficient voice, and reducing hyperfunction. Instructed pt in initially blowing through the straw into a cup of water with no voice, increasing to 50% voice and 50% air, and advancing to pitch glides. Pt demonstrated ability to do so following FUR FINISHER model. Introduced straw phonation without water and pt demonstrated good ability to complete SOVTE task, holding the air/phonation for an average of 13 seconds. She was also able to complete the exercise with pitch glides and singing Happy Birthday with minimal tension in throat and denied increased effort. Reviewed recommendation for HEP at the conclusion of the session, with pt stating understanding. HEP: resonant voice (humming>syllables>words>short phrases), diaphragmatic breathing, SOVTE for 20-seconds (bubbles in cup, straw phonation), glides, and singing. Pt was receptive to education and recommendations. Plan to continue to advance exercises as appropriate in next session given pt progress and report. Continue to follow up re: MBSS scheduling. Continue POC at a frequency of once a week. Reviewed with Goals,Home Exercise Program Patient Patient/Caregiver Excellent Understanding Plan Amount of Therapy 3 Months Recommended Frequency of Once a Week Treatment Length of Session 30 Minutes Therapeutic Contents Client Education,Home Exercise Program,Voice Training Provided Patient/ Home Exercise Program,Plan of Care,Questions/Concerns Caregiver Instruction Therapy Continue with Current Program Recommendations Suggested Referral Other Other Referrals Modified barium swallow study
--- NOTE | 2024-11-09 16:29 | ST.OPTN ---
Visit Care Team Role Provider Type CHRISTOS Ruiz Other Providers Speech Therapist Address: Phone: Fax: Tristian Frederick MD Family Provider Physician Address: [address] [place] [address], [place], [address] Tyrone Ramírez DO Attending Provider Non-Staff Primary Care Provider Referring Provider Address: [address] [place] [address], [place], [address] HEAD LOFT WORKER Treatment Note HEAD LOFT WORKER Treatment Note Start: 10/25/24 13:09 Freq: Status: Active Protocol: Document 11/09/24 16:16 SS (Rec: 11/09/24 16:29 SS Desktop) Speech Pathology Treatment Note Session Time Visit Start Time 11:30 Visit Stop Time 12:10 Total Visit Minutes 40 Visit Information Visit Number 07/20 Plan of Care Dates 10/25/24-01/25/25 Insurance [facility] Out of [facility] (max 20 visits) Information Setting Treatment Setting Outpatient Care Visit Type Note Type Treatment Note Next Note Type Next Note Type Treatment Note General Information Patient History Initial evaluation was completed on 08/18/24. Pt was discharged due to delayed ENT scheduling and reevaluated today for dysphagia and dysphonia. Per report, ?Moni Ozuna is a 64-year -old female, referred for a clinical swallow evaluation by Dr. Ramírez due to concerns regarding globus sensation and hx of esophageal dysphagia. 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 Her GERD was previously treated with protonics, though she stopped taking them recently after not noticing an improvement in symptoms. She has implemented all strategies recommended to control the GERD symptoms. She reports her gastritis is now fully resolved and managed. PMHx includes allergic rhinitis, asthma, esophagitis, hyperlipidemia, coronary artery disease, and atrial fibrillation. Since experiencing the phrenic nerve damage, pt reports experiencing shortness of breath when speaking for prolonged periods of time, reduced volume, and vocal hoarseness. She has recently undergone a pulmonary function test, though HEAD LOFT WORKER does not have access to the records. Additionally, pt reports symptoms that may be related to GERD diagnosis, though possibly are indicative of a swallowing impairment. She reports globus sensation, particularly when lying down at night. She also reports occasional coughing with liquids, particularly when taking consecutive sips or not paying attention. She denied overt s/sx of aspiration with solids or medications and denied sticking sensation during or after swallowing. She denied additional esophageal symptoms. She denied neurological history or recent head/neck injuries or surgeries. She denied hx of pneumonia. Pt is also concerned that her symptoms may be related to the medications that she is currently taking and the effects of polypharmacy.? Since initial evaluation, pt has also noted sticking sensation with solids, which resolved with use of liquid wash. Additionally, pt has been seen by Dr. 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 Continued voice treatment was recommended. Subjective Identification Type Name Observations/Patient Pt arrived to session on time. She was engaged and Presentation motivated throughout. Objective Short Term Goals Dysphonia 1. Pt will benefit from education in mechanics of voicing and tone focus in order to assist in producing resonant voice. 2. Pt will complete trained voice exercises (including, but not limited to resonant voice exercises, SOVTE, stretch and flow, and diaphragmatic breathing) in 100% of opportunities independently in order to increase efficiency of vocal fold vibration, improve breath support, and improve overall vocal quality. 3. Pt will participate in daily HEP targeting vocal hoarseness to improve voice quality per patient report. 4. Pt will participate in education of chronic cough strategies and independently recall at least two strategies. Dysphagia 1. Patient will complete MBSS to further assess swallowing pathophysiology and next steps in POC. Penitentiary Goals 1. Pt will improve overall self-perception of voice from a baseline of 59/120 on the Vocal Handicap Index ( VHI) following participation in skilled services. 2. Pt will report increased ability to return to baseline voice activities (e.g., ability to speak for prolonged periods of time, participate in conversation in loud environments) without experiencing hoarseness or reduced volume following participation in skilled services. 3. Pt will report an improvement in frequency and severity of occurrence of chronic cough. Treatment Activities Education re: alternatives to chronic throat clearing and cueing throughout the session. Implemented resonant voice and diaphragmatic breathing exercises to increase efficiency of vocal fold vibration, improve breath support, and improve overall vocal quality. Reviewed HEP and discussed progress. Assessment Patient Response to Good Treatment Rehab Potential Good Impairments Voice Identified Progress Towards Good Progress Goals Assessment of Improving Overall Progress Assessment of HEAD LOFT WORKER discussed progress with HEP and vocal quality since Improvement the last session. Pt reported continued mild hoarseness, though has benefited from humming as voice warm-up in the mornings. She has not heard back re: scheduling MBSS and will call her PCP. She expressed she has been implementing her HEP daily and has noticed improvement in her ability to complete exercises. HEAD LOFT WORKER provided education re: alternatives to throat clearing, including holding breath and swallowing hard, taking a sip of liquid, and performing a ?silent? cough/throat clearing by putting a breath ahead of the cough or throat clearing. Explained the importance of suppressing the urge to clear her throat by using these alternatives, but also protecting the airway as needed . Pt expressed understanding. Handout provided. Pt was able to implement these strategies throughout the session. Recommended she continue to do so at home and report back of progress in next session. Guided pt in resonant voice therapy exercises with the goal of increasing efficiency of vocal fold vibration by using a hierarchical approach and starting with /m/ in isolation. Pt instructed to place her hands on her face for tactile feedback during the humming exercise and to focus on the vibration in the front of his face with minimal effort in the throat. Pt with accurate production on first trial. Increased to syllable/word level with cueing for stretching ?m sound and use of intent. Pt production was clear with first trial following cue to stretch /m/ and HEAD LOFT WORKER modeling. Advanced to functional phrases, which pt was able to produce with clear vocal quality in 75% of opportunities, increasing to 100% given cueing to notice her vocal quality and implement resonant voice and diaphragmatic breathing when she noticed increased hoarseness. Discussed daily opportunities for use of resonant voice for increased carryover, such as having a phone conversation, ordering food at a restaurant, and reading out loud. Pt agreeable to trying to implement resonant voice in one opportunity every day until the next session. Reviewed recommendation for HEP at the conclusion of the session, with pt stating understanding. HEP: resonant voice (humming>syllables>words>functional phrases), diaphragmatic breathing, SOVTE for 20+seconds (advance straw diameter and length and water submersion for increased challenge). Pt was receptive to education and recommendations. Plan to continue to advance exercises as appropriate in next session given pt progress and report. Continue POC at a frequency of once a week. Reviewed with Goals,Home Exercise Program Patient Patient/Caregiver Excellent Understanding Plan Amount of Therapy 3 Months Recommended Frequency of Once a Week Treatment Length of Session 30 Minutes Therapeutic Contents Client Education,Home Exercise Program,Voice Training Provided Patient/ Home Exercise Program,Plan of Care,Questions/Concerns Caregiver Instruction Therapy Continue with Current Program Recommendations Suggested Referral Other Other Referrals Modified barium swallow study
--- NOTE | 2024-11-28 10:34 | ST.OPTN ---
Visit Care Team Role Provider Type CHRISTOS Ruiz Other Providers Speech Therapist Address: Phone: Fax: Tristian Frederick MD Family Provider Physician Address: [address] [place] [address], [place], [address] Tyrone Ramírez DO Attending Provider Non-Staff Primary Care Provider Referring Provider Address: [address] [place] [address], [place], [address] FARM DEMONSTRATOR Treatment Note FARM DEMONSTRATOR Treatment Note Start: 10/25/24 13:09 Freq: Status: Active Protocol: Document 11/28/24 10:23 SS (Rec: 11/28/24 10:34 SS Desktop) Speech Pathology Treatment Note Session Time Visit Start Time 09:47 Visit Stop Time 10:17 Total Visit Minutes 30 Visit Information Visit Number 08/20 Plan of Care Dates 10/25/24-01/25/25 Insurance [facility] Out of [facility] (max 20 visits) Information Setting Treatment Setting Outpatient Care Visit Type Note Type Treatment Note Next Note Type Next Note Type Treatment Note General Information Patient History Initial evaluation was completed on 08/18/24. Pt was discharged due to delayed ENT scheduling and reevaluated today for dysphagia and dysphonia. Per report, ?Moni Ozuna is a 64-year -old female, referred for a clinical swallow evaluation by Dr. Ramírez due to concerns regarding globus sensation and hx of esophageal dysphagia. 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 Her GERD was previously treated with protonics, though she stopped taking them recently after not noticing an improvement in symptoms. She has implemented all strategies recommended to control the GERD symptoms. She reports her gastritis is now fully resolved and managed. PMHx includes allergic rhinitis, asthma, esophagitis, hyperlipidemia, coronary artery disease, and atrial fibrillation. Since experiencing the phrenic nerve damage, pt reports experiencing shortness of breath when speaking for prolonged periods of time, reduced volume, and vocal hoarseness. She has recently undergone a pulmonary function test, though FARM DEMONSTRATOR does not have access to the records. Additionally, pt reports symptoms that may be related to GERD diagnosis, though possibly are indicative of a swallowing impairment. She reports globus sensation, particularly when lying down at night. She also reports occasional coughing with liquids, particularly when taking consecutive sips or not paying attention. She denied overt s/sx of aspiration with solids or medications and denied sticking sensation during or after swallowing. She denied additional esophageal symptoms. She denied neurological history or recent head/neck injuries or surgeries. She denied hx of pneumonia. Pt is also concerned that her symptoms may be related to the medications that she is currently taking and the effects of polypharmacy.? Since initial evaluation, pt has also noted sticking sensation with solids, which resolved with use of liquid wash. Additionally, pt has been seen by Dr. 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 Continued voice treatment was recommended. Subjective Identification Type Name Observations/Patient Pt arrived to session on time. She was engaged and Presentation motivated throughout. Objective Short Term Goals Dysphonia 1. Pt will benefit from education in mechanics of voicing and tone focus in order to assist in producing resonant voice. 2. Pt will complete trained voice exercises (including, but not limited to resonant voice exercises, SOVTE, stretch and flow, and diaphragmatic breathing) in 100% of opportunities independently in order to increase efficiency of vocal fold vibration, improve breath support, and improve overall vocal quality. 3. Pt will participate in daily HEP targeting vocal hoarseness to improve voice quality per patient report. 4. Pt will participate in education of chronic cough strategies and independently recall at least two strategies. Dysphagia 1. Patient will complete MBSS to further assess swallowing pathophysiology and next steps in POC. Alf Goals 1. Pt will improve overall self-perception of voice from a baseline of 59/120 on the Vocal Handicap Index ( VHI) following participation in skilled services. 2. Pt will report increased ability to return to baseline voice activities (e.g., ability to speak for prolonged periods of time, participate in conversation in loud environments) without experiencing hoarseness or reduced volume following participation in skilled services. 3. Pt will report an improvement in frequency and severity of occurrence of chronic cough. Treatment Activities Implemented SOVTE straw phonation, resonant voice, and diaphragmatic breathing exercises to increase efficiency of vocal fold vibration, improve breath support, and improve overall vocal quality. Reviewed HEP and discussed progress. FARM DEMONSTRATOR to reach out to PCP again to request MBSS order. Assessment Patient Response to Good Treatment Rehab Potential Good Impairments Voice Identified Progress Towards Good Progress Goals Assessment of Improving Overall Progress Assessment of FARM DEMONSTRATOR discussed progress with HEP and vocal quality since Improvement the last session. Pt reported has improved significantly over the past two weeks. She is able to project more, speak for longer durations of time, and has been more aware of the quality of her voice. She has been completing HEP daily and has been cognizant of use of throat clearing suppression techniques when she notices the urge to clear her throat. She has not heard back re: scheduling MBSS. FARM DEMONSTRATOR to call and message PCP?s office again to request order. Semi-Occluded Vocal Tract Exercise (SOVTE) straw phonation implemented with the goal of improving balance among the subsystems by increasing vocal tract inertance, resulting in a more efficient voice, and reducing hyperfunction. Instructed pt in blowing through the straw advancing from air only, to voice, to pitch glides, and to singing. Pt demonstrated ability to do so following FARM DEMONSTRATOR model, expressing good resistance. She denied laryngeal tension with this exercise and was able to maintain a clear vocal quality throughout. Guided pt in resonant voice therapy exercises with the goal of increasing efficiency of vocal fold vibration. In conversation, pt was able to produce with clear vocal quality about 90% of the time, increasing to 100% given min verbal cueing to notice her vocal quality and implement resonant voice and diaphragmatic breathing when she noticed increased hoarseness. Pt reported mild vocal fatigue having to balance holding a conversation and implementing strategies. Pt agreeable to continuing to implement resonant voice in conversation at home. Reviewed recommendation for HEP at the conclusion of the session, with pt stating understanding. HEP: resonant voice, diaphragmatic breathing, SOVTE straw phonation (advance straw diameter and length and water submersion for increased challenge). Pt was receptive to education and recommendations. Plan to continue to advance exercises as appropriate in next session given pt progress and report. Continue POC at a frequency of every other week given good progress to date. Reviewed with Goals,Home Exercise Program Patient Patient/Caregiver Excellent Understanding Plan Amount of Therapy 3 Months Recommended Frequency of Once a Week Treatment Length of Session 30 Minutes Therapeutic Contents Client Education,Home Exercise Program,Voice Training Provided Patient/ Home Exercise Program,Plan of Care,Questions/Concerns Caregiver Instruction Therapy Continue with Current Program Recommendations Suggested Referral Other Other Referrals Modified barium swallow study
--- NOTE | 2024-12-13 14:49 | ST.OPTN ---
Visit Care Team Role Provider Type CHRISTOS Ruiz Other Providers Speech Therapist Address: Phone: Fax: Tristian Frederick MD Family Provider Physician Address: [address] [place] [address], [place], [address] Tyrone Ramírez DO Attending Provider Non-Staff Primary Care Provider Referring Provider Address: [address] [place] [address], [place], [address] FITTING ROOM INSPECTOR Treatment Note FITTING ROOM INSPECTOR Treatment Note Start: 10/25/24 13:09 Freq: Status: Active Protocol: Document 12/13/24 14:41 SS (Rec: 12/13/24 14:49 SS Desktop) Speech Pathology Treatment Note Session Time Visit Start Time 12:20 Visit Stop Time 12:50 Total Visit Minutes 30 Visit Information Visit Number 09/19 Plan of Care Dates 10/25/24-01/25/25 Insurance [facility] Out of [facility] (max 20 visits) Information Setting Treatment Setting Outpatient Care Visit Type Note Type Treatment Note Next Note Type Next Note Type Treatment Note General Information Patient History Initial evaluation was completed on 08/18/24. Pt was discharged due to delayed ENT scheduling and reevaluated today for dysphagia and dysphonia. Per report, ?Moni Ozuna is a 64-year -old female, referred for a clinical swallow evaluation by Dr. Ramírez due to concerns regarding globus sensation and hx of esophageal dysphagia. 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 Her GERD was previously treated with protonics, though she stopped taking them recently after not noticing an improvement in symptoms. She has implemented all strategies recommended to control the GERD symptoms. She reports her gastritis is now fully resolved and managed. PMHx includes allergic rhinitis, asthma, esophagitis, hyperlipidemia, coronary artery disease, and atrial fibrillation. Since experiencing the phrenic nerve damage, pt reports experiencing shortness of breath when speaking for prolonged periods of time, reduced volume, and vocal hoarseness. She has recently undergone a pulmonary function test, though FITTING ROOM INSPECTOR does not have access to the records. Additionally, pt reports symptoms that may be related to GERD diagnosis, though possibly are indicative of a swallowing impairment. She reports globus sensation, particularly when lying down at night. She also reports occasional coughing with liquids, particularly when taking consecutive sips or not paying attention. She denied overt s/sx of aspiration with solids or medications and denied sticking sensation during or after swallowing. She denied additional esophageal symptoms. She denied neurological history or recent head/neck injuries or surgeries. She denied hx of pneumonia. Pt is also concerned that her symptoms may be related to the medications that she is currently taking and the effects of polypharmacy.? Since initial evaluation, pt has also noted sticking sensation with solids, which resolved with use of liquid wash. Additionally, pt has been seen by Dr. 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 Continued voice treatment was recommended. Subjective Identification Type Name Observations/Patient Pt arrived to session on time. She was engaged and Presentation motivated throughout. Objective Short Term Goals Dysphonia 1. Pt will benefit from education in mechanics of voicing and tone focus in order to assist in producing resonant voice. 2. Pt will complete trained voice exercises (including, but not limited to resonant voice exercises, SOVTE, stretch and flow, and diaphragmatic breathing) in 100% of opportunities independently in order to increase efficiency of vocal fold vibration, improve breath support, and improve overall vocal quality. 3. Pt will participate in daily HEP targeting vocal hoarseness to improve voice quality per patient report. 4. Pt will participate in education of chronic cough strategies and independently recall at least two strategies. Dysphagia 1. Patient will complete MBSS to further assess swallowing pathophysiology and next steps in POC. Assisted Goals 1. Pt will improve overall self-perception of voice from a baseline of 59/120 on the Vocal Handicap Index ( VHI) following participation in skilled services. 2. Pt will report increased ability to return to baseline voice activities (e.g., ability to speak for prolonged periods of time, participate in conversation in loud environments) without experiencing hoarseness or reduced volume following participation in skilled services. 3. Pt will report an improvement in frequency and severity of occurrence of chronic cough. Treatment Activities Reviewed MBSS results and FARZANA technique for esophageal dysmotility. Implemented SOVTE straw phonation, resonant voice, and diaphragmatic breathing exercises to increase efficiency of vocal fold vibration, improve breath support, and improve overall vocal quality. Reviewed HEP and discussed progress. Assessment Patient Response to Good Treatment Rehab Potential Good Impairments Voice Identified Progress Towards Good Progress Goals Assessment of Improving Overall Progress Assessment of FITTING ROOM INSPECTOR provided education re: normal swallow anatomy and Improvement physiology and the results of the MBSS. Utilized a visual diagram to improve pt?s understanding. Additionally, reviewed FARZANA technique targeting esophageal dysmotility. Pt was able to verbally recall and implement 5/5 steps with trials of thin liquid. Recommended pt continue to implement FARZANA technique to reduce globus sensation and follow up with GI. Provided handout for recall of information. Pt expressed understanding re: results. FITTING ROOM INSPECTOR discussed progress with HEP and vocal quality since the last session. Pt reported minimal hoarseness over the past two weeks and noticed her voice has sounded stronger. She has been completing HEP daily and has been cognizant of use of throat clearing suppression techniques. Semi-Occluded Vocal Tract Exercise (SOVTE) straw phonation implemented with the goal of improving balance among the subsystems by increasing vocal tract inertance, resulting in a more efficient voice, and reducing hyperfunction. Instructed pt in blowing through the straw advancing from air only, to voice, to pitch glides, and to singing. Pt demonstrated ability to do so following FITTING ROOM INSPECTOR model, expressing good resistance. She denied laryngeal tension with this exercise and was able to maintain a clear vocal quality throughout. This was consistent across trials with straws of various diameters. Guided pt in resonant voice therapy exercises with the goal of increasing efficiency of vocal fold vibration. In conversation, pt was able to produce with clear vocal quality consistently and reported minimal fatigue toward the end of the session. Reviewed recommendation for HEP at the conclusion of the session, with pt stating understanding. HEP: resonant voice, diaphragmatic breathing, SOVTE straw phonation (advance straw diameter and length and water submersion for increased challenge), FARZANA technique. Pt was receptive to education and recommendations. Plan to complete discharge in next 1-2 sessions as pt is close to meeting her short-term and long-term goals. Continue POC at a frequency of every other week given good progress to date. Reviewed with Goals,Home Exercise Program Patient Patient/Caregiver Excellent Understanding Plan Amount of Therapy 3 Months Recommended Frequency of Once a Week Treatment Length of Session 30 Minutes Therapeutic Contents Client Education,Home Exercise Program,Voice Training Provided Patient/ Home Exercise Program,Plan of Care,Questions/Concerns Caregiver Instruction Therapy Continue with Current Program Recommendations Suggested Referral Other Other Referrals Modified barium swallow study
--- NOTE | 2025-01-23 12:51 | ST.OPDS ---
Visit Care Team Role Provider Type CHRISTOS Ruiz Other Providers Speech Therapist Address: Phone: Fax: Tristian Frederick MD Family Provider Physician Address: [address] [place] [address], [id number] Tyrone Ramírez DO Attending Provider Non-Staff Primary Care Provider Referring Provider Address: [address] [place] [address], [place], [address] HOLISTIC SPECIALIST Treatment Note HOLISTIC SPECIALIST Treatment Note Start: 10/25/24 13:09 Freq: Status: Active Protocol: Document 01/23/25 12:45 SS (Rec: 01/23/25 12:51 SS Desktop) Speech Pathology Treatment Note Visit Information Visit Number 09/[id number] Plan of Care Dates 10/25/24-01/25/25 Insurance [employer] Out of [facility] (max 20 visits) Information Setting Treatment Setting Outpatient Care Visit Type Note Type Discharge Summary General Information Patient History Initial evaluation was completed on 08/18/24. Pt was discharged due to delayed ENT scheduling and reevaluated today for dysphagia and dysphonia. Per report, ?Moni Ozuna is a 64-year -old female, referred for a clinical swallow evaluation by Dr. Ramírez due to concerns regarding globus sensation and hx of esophageal dysphagia. 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 Her GERD was previously treated with protonics, though she stopped taking them recently after not noticing an improvement in symptoms. She has implemented all strategies recommended to control the GERD symptoms. She reports her gastritis is now fully resolved and managed. PMHx includes allergic rhinitis, asthma, esophagitis, hyperlipidemia, coronary artery disease, and atrial fibrillation. Since experiencing the phrenic nerve damage, pt reports experiencing shortness of breath when speaking for prolonged periods of time, reduced volume, and vocal hoarseness. She has recently undergone a pulmonary function test, though HOLISTIC SPECIALIST does not have access to the records. Additionally, pt reports symptoms that may be related to GERD diagnosis, though possibly are indicative of a swallowing impairment. She reports globus sensation, particularly when lying down at night. She also reports occasional coughing with liquids, particularly when taking consecutive sips or not paying attention. She denied overt s/sx of aspiration with solids or medications and denied sticking sensation during or after swallowing. She denied additional esophageal symptoms. She denied neurological history or recent head/neck injuries or surgeries. She denied hx of pneumonia. Pt is also concerned that her symptoms may be related to the medications that she is currently taking and the effects of polypharmacy.? Since initial evaluation, pt has also noted sticking sensation with solids, which resolved with use of liquid wash. Additionally, pt has been seen by Dr. 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 Continued voice treatment was recommended. Objective Short Term Goals Dysphonia 1. Pt will benefit from education in mechanics of voicing and tone focus in order to assist in producing resonant voice. 01/23/25: Goal met. 2. Pt will complete trained voice exercises (including, but not limited to resonant voice exercises, SOVTE, stretch and flow, and diaphragmatic breathing) in 100% of opportunities independently in order to increase efficiency of vocal fold vibration, improve breath support, and improve overall vocal quality. 01/23/25: Goal met. 3. Pt will participate in daily HEP targeting vocal hoarseness to improve voice quality per patient report. 01/23/25: Goal met. 4. Pt will participate in education of chronic cough strategies and independently recall at least two strategies. 01/23/25: Goal met. Dysphagia 1. Patient will complete MBSS to further assess swallowing pathophysiology and next steps in POC. 01/23/25: Goal met. Print Shop Chief Clerk Goals 1. Pt will improve overall self-perception of voice from a baseline of 59/120 on the Vocal Handicap Index ( VHI) following participation in ST skilled services. 01/23/25: Discontinue goal. 2. Pt will report increased ability to return to baseline voice activities (e.g., ability to speak for prolonged periods of time, participate in conversation in loud environments) without experiencing hoarseness or reduced volume following participation in ST skilled services. 01/23/25: Goal met. 3. Pt will report an improvement in frequency and severity of occurrence of chronic cough. 01/23/25: Goal met. Treatment Activities Moni was seen for 4 treatment sessions. Treatment included review of MBSS results and FARZANA technique for esophageal dysmotility. Treatment also included voice exercises, such as SOVTE straw phonation, resonant voice, and diaphragmatic breathing exercises to increase efficiency of vocal fold vibration, improve breath support, and improve overall vocal quality. Assessment Patient Response to Good Treatment Rehab Potential Good Impairments Voice Identified Progress Towards Good Progress,Appropriate for Discharge Goals Assessment of Improving Overall Progress Assessment of HOLISTIC SPECIALIST provided education re: normal swallow anatomy and Improvement physiology and the results of the MBSS. Additionally, reviewed FARZANA technique targeting esophageal dysmotility. Pt was able to verbally recall and implement the technique. Voice was targeted via training in voice exercises including Semi-occluded Vocal Tract Exercise (SOVTE) straw phonation, resonant voice therapy exercises, and diaphragmatic breathing. Since the start of care, pt has improved in self- perception of voice. She reported minimal hoarseness and noticed her voice has sounded stronger. She has been completing HEP daily and has been cognizant of use of throat clearing suppression techniques. Pt has been diligent in daily HEP practice and expressed satisfaction with the overall quality of her voice. Pt plans to continue competing her HEP a few times a week to maintain the gains she had made with speech therapy services. The plan is to discharge the pt from speech therapy services as she has met her LTG and STG goals targeting dysphonia and dysphagia. Recommend she request a referral from his PCP if she notes changes with her voice and swallowing. Pt agreeable to plan. Reviewed with Goals,Home Exercise Program Patient Patient/Caregiver Excellent Understanding Plan Amount of Therapy No Further Therapy Recommended Frequency of No Further Therapy Treatment Therapeutic Contents Client Education,Home Exercise Program,Voice Training Provided Patient/ Home Exercise Program,Plan of Care,Questions/Concerns Caregiver Instruction Therapy Continue with Current Program,Discharge to Home Recommendations Exercise Program,Discharge from Speech Therapy
== END 2025-01-25 11:01 | disposition home or self-care (01) ==
LOC: SP 12:15
PROVIDERS: Family Provider Internal Medicine; PCP Family Medicine; Referring Provider Family Medicine; Visit Provider Family Medicine
DX: R09.A2 Foreign body sensation, throat (principal); R13.19 Other dysphagia; R49.0 Dysphonia; J38.01 Paralysis of vocal cords and larynx, unilateral
CPT/HCPCS: 92507; 92524; 92610